=== PATIENT | male | born 1985 | race Caucasian/White ===

== ENCOUNTER → 2018-03-08 15:52 | Outpatient (CLI) | payer OTHER, SELFPAY | PROVIDERS: Family Provider Family Medicine; PCP Family Medicine; Referring Provider Physician Assistant; Visit Provider Physician Assistant | DX: J02.9 Acute pharyngitis, unspecified (principal) | CPT/HCPCS: 87081 ==

== ENCOUNTER → 2019-06-08 15:40 | Outpatient (CLI) | payer OTHER, SELFPAY ==
--- NOTE | 2019-06-08 | VAS_PTH ---
PATIENT: ABHILASH CHOWDHURY LOC: [facility]#:[id number] AGE/SX: 39/M ROOM: RE06/08/[address]: Dr. Chriss Rodarte MD : [id number] BED: DIS: SPEC #: [id number] RECD: 06/08/19 13:31 STATUS: LOTUS DILIP #: [id number] CORI: 06/08/19 00:[address]: Chriss Rodarte DEPT: SURGICAL PATHOLOGY RECD BY: Wallace Coronado Tissues: A - Vas deferens, NOS B - Vas deferens, NOS Procedures: Surgery Specimen Level II HEADER OPERATION: Bilateral partial vasectomy PRE-OP DIAGNOSIS: Sterilization TISSUE SUBMITTED: A - Right vas deferens, B - Left vas deferens MICROSCOPIC DIAGNOSIS A. Right vas deferens, partial vasectomy: Complete transected segment of vas deferens, no pathologic diagnosis. B. Left vas deferens, partial vasectomy: Complete transected segment of vas deferens, no pathologic diagnosis. ZULMA:velma 06/12/19 MICROSCOPIC DESCRIPTION Slides are reviewed. GROSS DESCRIPTION A - Received is one container designated right vas deferens. The specimen consists of a cylindrical segment of pink-reyes soft tissue measuring 1.5 cm in length and 0.2 cm in maximum diameter. The specimen is totally submitted in one cassette for postfixation serial sectioning. B - Received is one container designated left vas deferens. The specimen consists of a cylindrical segment of pink-reyes soft tissue measuring 1.5 cm in length and 0.2 cm in maximum diameter. The specimen is totally submitted in one cassette for postfixation serial sectioning. / AM:velma 06/11/19 TC:4 CPT: 97821 x2
[2019-06-08 12:56] VITALS: BMI 27.0
== END ==
PROVIDERS: Referring Provider Surgery; Visit Provider Surgery
DX: Z30.2 Encounter for sterilization (principal)
CPT/HCPCS: 88302

== ENCOUNTER → 2019-08-01 | Outpatient (CLI) | payer OTHER, SELFPAY ==
[2019-06-08 12:56] VITALS: BMI 27.0
[2019-08-02 10:02] LABS: Semen Analysis Post Vas ABSENT
== END | disposition home or self-care (01) ==
LOC: LABSPEC 08:48
PROVIDERS: Visit Provider Surgery
DX: Z30.2 Encounter for sterilization (principal)
CPT/HCPCS: 89321

== ENCOUNTER → 2019-09-08 | Outpatient (CLI) | payer OTHER, SELFPAY ==
[2019-06-08 12:56] VITALS: BMI 27.0
[2019-09-10 10:25] LABS: Semen Analysis Post Vas ABSENT
== END | disposition home or self-care (01) ==
LOC: LABSPEC 07:25
PROVIDERS: Referring Provider Surgery; Visit Provider Surgery
DX: Z30.2 Encounter for sterilization (principal)
CPT/HCPCS: 89321

== ENCOUNTER → 2020-03-31 17:38 | Outpatient (CLI) | payer OTHER, SELFPAY ==
[2019-06-08 12:56] VITALS: BMI 27.0
== END ==
PROVIDERS: Referring Provider Physician Assistant Surgical; Visit Provider Physician Assistant Surgical
DX: U07.1 COVID-19 (principal)
CPT/HCPCS: 87635; C9803; U0003